=== PATIENT | female | born 1995 | race Caucasian/White ===

== ENCOUNTER 2021-11-11 10:21 | Emergency (ER) | payer SELFPAY ==
[~2021-11-11] VITALS: Ht 165.1 cm; Wt 61.4 kg
[2021-11-11] MEDS ORDERED: PERCOCET 325 MG1 TA2 PO (12:16)
[2021-11-11] MEDS ORDERED: CEPHALEXIN500 M1 PO (12:16)
[2021-11-11 12:35] VITALS: BP 110/82; PULSE 84
== END 2021-11-11 12:35 | disposition home or self-care (01) ==
LOC: COL.ER 10:21
DX: S62.632B Displaced fracture of distal phalanx of right middle finger, initial encounter for open fracture (principal); W23.0XXA Caught, crushed, jammed, or pinched between moving objects, initial encounter; Y92.59 Other trade areas as the place of occurrence of the external cause; Y99.0 Civilian activity done for income or pay